=== PATIENT | female | born 2000 | race Caucasian/White ===

== ENCOUNTER 2019-11-11 21:28 | Emergency (ER) | payer OTHER ==
[~2019-11-11] VITALS: Ht 162.6 cm; Wt 68.2 kg
--- NOTE | 2019-11-11 22:03 | PHYS DOC ---
Past Medical History Past Medical History: Other Additional Past Medical Histor: SVT Past Surgical History: Other Additional Past Surgical Histo: CARDIAC ABLATION X2 Alcohol Use: None Drug Use: None Adult General Chief Complaint Chief Complaint: CHEST PAIN-CARDIAC NATURE HPI HPI Patient is a 19 year old male with remote history of SVT and cardiac ablation presents with right-sided parasternal chest pain starting 1 hour prior to ED arrival. Symptoms began while patient was sleeping. Pain is described as pressure-like and is rated [id number]. Pain reproduces with deep breathing and radiates to her back. It is not associated with fever, cough, sore throat, shortness of breath, palpitations, chills or sweats. No abdominal pain. Denies leg pain or swelling. No other acute symptoms or complaints. Patient has an IUD in place. Patient is a current smoker, denies drugs and alcohol. [] Review of Systems Review of Systems ROS as per HPI. All other ROS are negative All other systems were reviewed and found to be within normal limits, except as documented in this note. Current Medications Current Medications Current Medications Medications (Trade) Dose Ordered Sig/Zoe Start Time Stop Time Status Last Admin Dose Admin Ketorolac Tromethamine (Toradol 15mg Vial) 15 mg 1X ONCE 11/11/19 22:30 11/11/19 22:31 DC 11/11/19 22:44 15 MG Allergies Allergies Allergies Coded Allergies Type Severity Reaction Last Updated Verified Sulfa (Sulfonamide Antibiotics) Allergy Intermediate RASH 09/08/15 Yes Physical Exam Physical Exam Constitutional: Well developed, well nourished, no acute distress, non-toxic appearance. [] HENT: Normocephalic, atraumatic, bilateral external ears normal, oropharynx moist, no oral exudates, nose normal. [] Eyes: PERRLA, EOMI, conjunctiva normal, no discharge. [] Neck: Normal range of motion, no tenderness. [] Cardiovascular:Heart rate regular rhythm, no murmur [] Lungs & Thorax: Bilateral breath sounds clear to auscultation [] Abdomen: Bowel sounds normal, soft, no tenderness. [] Skin: Warm, dry, no erythema, no rash. [] Back: No tenderness, no CVA tenderness. [] Extremities: No tenderness, no cyanosis, negative Homans sign. [] Neurologic: Alert and oriented X 3, normal motor function, normal sensory function, no focal deficits noted. [] Psychologic: Affect normal, judgement normal, mood normal. [] Current Patient Data Vital Signs Vital Signs Date Time Temp Pulse Resp B/P (MAP) Pulse Ox O2 Delivery O2 Flow Rate FiO2 11/11/19 21:40 97.8 77 19 116/70 (85) 99 Room Air 97.8 Lab Values Laboratory Tests Test 11/11/19 21:38 11/11/19 22:20 White Blood Count 11.3 x10^3/uL (4.0-11.0) H Red Blood Count 4.78 x10^6/uL (3.50-5.40) Hemoglobin 14.7 g/dL (12.0-15.5) Hematocrit 42.5 % (36.0-47.0) Mean Corpuscular Volume 89 fL (79-100) Mean Corpuscular Hemoglobin 31 pg (25-35) Mean Corpuscular Hemoglobin Concent 35 g/dL (31-37) Red Cell Distribution Width 12.9 % (11.5-14.5) Platelet Count 240 x10^3/uL (140-400) Neutrophils (%) (Auto) 72 % (31-73) Lymphocytes (%) (Auto) 20 % (24-48) L Monocytes (%) (Auto) 6 % (0-9) Eosinophils (%) (Auto) 2 % (0-3) Basophils (%) (Auto) 0 % (0-3) Neutrophils # (Auto) 8.2 x10^3/uL (1.8-7.7) H Lymphocytes # (Auto) 2.3 x10^3/uL (1.0-4.8) Monocytes # (Auto) 0.7 x10^3/uL (0.0-1.1) Eosinophils # (Auto) 0.2 x10^3/uL (0.0-0.7) Basophils # (Auto) 0.0 x10^3/uL (0.0-0.2) D-Dimer (Charlee) < 0.27 ug/mlFEU Sodium Level 143 mmol/L (136-145) Potassium Level 4.1 mmol/L (3.5-5.1) Chloride Level 106 mmol/L (98-107) Carbon Dioxide Level 28 mmol/L (21-32) Anion Gap 9 (6-14) Blood Urea Nitrogen 12 mg/dL (7-20) Creatinine 0.9 mg/dL (0.6-1.0) Estimated GFR (Cockcroft-Gault) 79.8 BUN/Creatinine Ratio 13 (6-20) Glucose Level 93 mg/dL (70-99) Calcium Level 8.9 mg/dL (8.5-10.1) Total Bilirubin 0.4 mg/dL (0.2-1.0) Aspartate Amino Transferase (AST) 17 U/L (15-37) Alanine Aminotransferase (ALT) 22 U/L (14-59) Alkaline Phosphatase 121 U/L (46-116) H Total Protein 7.0 g/dL (6.4-8.2) Albumin 4.1 g/dL (3.4-5.0) Albumin/Globulin Ratio 1.4 (1.0-1.7) Lipase 94 U/L (73-393) POC Urine HCG, Qualitative Hcg negative (Negative) Laboratory Tests 11/11/19 21:38 Laboratory Tests 11/11/19 21:38 EKG EKG [EKG: Sinus rhythm, no acute ST-T wave changes.] Radiology/Procedures Radiology/Procedures Chest XR: NAD[] Course & Med Decision Making Course & Med Decision Making Pertinent Labs and Imaging studies reviewed. (See chart for details) [Pain resolved with Toradol. Lab, EKG imaging studies unremarkable. Suspect muscle skeletal pain with component of pleurisy. Recommend supportive care, watchful waiting and close PCP follow-up. Return precautions reviewed. Patient and parent verbalizes understanding and agreement discharge instructions prior to departure.] Dragon Disclaimer Dragon Disclaimer This electronic medical record was generated, in whole or in part, using a voice recognition dictation system. Departure Departure Impression: Primary Impression: Chest wall pain Additional Impression: Pleurisy Disposition: 01 HOME, SELF-CARE Condition: GOOD Referrals: CAROLINE BRANDON M.D. (PCP) Patient Instructions: Chest Pain (Nonspecific), [id number], Pleurisy, [id number] Additional Instructions: Please go home and rest. Take Tylenol or ibuprofen if chest pain returns. Follow-up with your PCP in 2-3 days for reevaluation. Return to the ED if new or worsening symptoms. Problem Qualifiers LISE SARABIA DO Nov 11, 2019 22:03
[2019-11-11 22:22] LABS: BASO % 0 % (0-3); EOS # 0.2 x10^3/uL (0.0-0.7); EOS % 2 % (0-3); HEMATOCRIT 42.5 % (36.0-47.0); HEMOGLOBIN 14.7 g/dL (12.0-15.5); LYMPH # 2.3 x10^3/uL (1.0-4.8); LYMPH % 20 % (24-48); MEAN CORPUSCULAR HEMOGLOBIN 31 pg (25-35); MEAN CORPUSCULAR HGB CONC 35 g/dL (31-37); MEAN CORPUSCULAR VOLUME 89 fL (79-100); MONO # 0.7 x10^3/uL (0.0-1.1); MONO % 6 % (0-9); NEUT # 8.2 x10^3/uL (1.8-7.7); NEUT % 72 % (31-73); PLATELET COUNT 240 x10^3/uL (140-400); RED BLOOD COUNT 4.78 x10^6/uL (3.50-5.40); RED CELL DISTRIBUTION WIDTH 12.9 % (11.5-14.5); WHITE BLOOD COUNT 11.3 x10^3/uL (4.0-11.0)
[2019-11-11 22:29] LABS: CALCIUM 8.9 mg/dL (8.5-10.1); CREATININE 0.9 mg/dL (0.6-1.0); GFR 79.8; POTASSIUM 4.1 mmol/L (3.5-5.1)
[2019-11-11] MEDS ORDERED: KETOROLAC 15 MG/ML VIAL. IVP ONE (22:30)
[2019-11-11 22:35] LABS: ALBUMIN 4.1 g/dL (3.4-5.0); ALBUMIN/GLOBULIN RATIO 1.4 (1.0-1.7); TOTAL BILIRUBIN 0.4 mg/dL (0.2-1.0)
--- NOTE | 2019-11-11 22:47 | RAD ---
Exam: Chest one view INDICATION: Chest pain TECHNIQUE: Frontal view of the chest Comparisons: None FINDINGS: The cardiomediastinal silhouette and pulmonary vessels are within normal limits. The lung and pleural spaces are clear. IMPRESSION: No acute cardiopulmonary process. Electronically signed by: Sade Corona MD (11/11/2019 10:44 PM) [id number]
[2019-11-11 23:37] VITALS: BP 96/52
== END 2019-11-12 00:05 | disposition home or self-care (01) ==
LOC: ER 21:28
DX: R09.1 Pleurisy (principal); R07.2 Precordial pain; F17.200 Nicotine dependence, unspecified, uncomplicated; Z88.2 Allergy status to sulfonamides
CPT/HCPCS: 36415; 71045; 80053; 81025; 83690; 85025; 85379; 96374; 99285; J1885

== ENCOUNTER 2020-05-13 23:55 | Emergency (ER) | payer OTHER ==
[~2020-05-13] VITALS: Ht 162.6 cm; Wt 59.1 kg
--- NOTE | 2020-05-14 01:02 | PHYS DOC ---
Past Medical History Past Medical History: Other Additional Past Medical Histor: SVT Past Surgical History: Other Additional Past Surgical Histo: CARDIAC ABLATION X2 Smoking Status: Current Every Day Smoker Alcohol Use: None Drug Use: None General Adult EDM: Chief Complaint: CHEST PAIN-CARDIAC NATURE HPI: HPI: Patient is a 19 year old female who presents with chest pain. The patient reports that she was diagnosed with pleurisy back in November 2019. Since then she has had intermittent pain in the anterior chest. Some days she will have it and some days she well. It may be gone for weeks and then will return spontaneously. She describes it as a sharp pain in trains. The pain will last for a few seconds or second then go away and then return. She denies any cough, fever, chills, shortness of breath, nausea or vomiting, weight loss, melena, hematochezia or abdominal pain. Review of Systems: Review of Systems: Constitutional: Denies fever or chills. [] Eyes: Denies change in visual acuity. [] HENT: Denies nasal congestion or sore throat. [] Respiratory: Denies cough or shortness of breath. [] Cardiovascular: See HPI. [] GI: Denies abdominal pain, nausea, vomiting, bloody stools or diarrhea. [] : Denies dysuria. [] Musculoskeletal: Denies back pain or joint pain. [] Integument: Denies rash. [] Neurologic: Denies headache, focal weakness or sensory changes. [] Endocrine: Denies polyuria or polydipsia. [] Lymphatic: Denies swollen glands. [] Psychiatric: Denies depression or anxiety. [] Heart Score: HEART Score for Chest Pain: HEART Score for Chest Pain Response (Comments) Value History Slighlty/Non-Suspicious 0 ECG Normal 0 Age < 45 0 Risk Factors No Risk Factors 0 Troponin < Normal Limit 0 Total 0 Risk Factors: Risk Factors: DM, Current or recent (<one month) smoker, HTN, HLP, family history of CAD, obesity. Risk Scores: Score 0 - 3: 2.5% MACE over next 6 weeks - Discharge Home Score 4 - 6: 20.3% MACE over next 6 weeks - Admit for Clinical Observation Score 7 - 10: 72.7% MACE over next 6 weeks - Early Invasive Strategies Allergies: Allergies: Allergies Coded Allergies Type Severity Reaction Last Updated Verified Sulfa (Sulfonamide Antibiotics) Allergy Intermediate RASH 09/08/15 Yes Physical Exam: PE: Constitutional: Well developed, well nourished, no acute distress, non-toxic appearance. [] HENT: Normocephalic, atraumatic, bilateral external ears normal, oropharynx moist, no oral exudates, nose normal. [] Eyes: PERRLA, EOMI, conjunctiva normal, no discharge. [] Neck: Normal range of motion, no tenderness, supple, no stridor. [] Cardiovascular:Heart rate regular rhythm, no murmur Chest wall: Tender to palpation in the inferior anterior costochondral margin reproducing her pain, no deformity [] Lungs & Thorax: Bilateral breath sounds clear to auscultation [] Abdomen: Bowel sounds normal, soft, no tenderness, no masses, no pulsatile masses. [] Skin: Warm, dry, no erythema, no rash. [] Back: No tenderness, no CVA tenderness. [] Extremities: No tenderness, no cyanosis, no clubbing, ROM intact, no edema. [] Neurologic: Alert and oriented X 3, normal motor function, normal sensory function, no focal deficits noted. [] Psychologic: Affect normal, judgement normal, mood normal. [] Current Patient Data: Vital Signs: Vital Signs Date Time Temp Pulse Resp B/P (MAP) Pulse Ox O2 Delivery O2 Flow Rate FiO2 05/14/20 00:01 98.6 78 16 120/79 (93) 99 Room Air 98.6 EKG: EKG: Heart rate is 74 bpm, normal sinus rhythm, incomplete right bundle branch block, normal intervals, normal axis, abnormal ECG [] Radiology/Procedures: Radiology/Procedures: [] Course & Med Decision Making: Course & Med Decision Making Pertinent Labs and Imaging studies reviewed. (See chart for details) 0235-the patient was seen and reevaluated. I reviewed all her laboratory and x- ray data with her. At this time she is suffering from chest wall pain secondary to costochondritis. I discussed with her treatment plan, reasons to return and need for follow-up. [] Winifred Disclaimer: Winifred Disclaimer: This electronic medical record was generated, in whole or in part, using a voice recognition dictation system. Departure Departure Impression: Primary Impression: Chest wall pain Additional Impression: Costal chondritis Disposition: HOME, SELF-CARE Condition: IMPROVED Referrals: NO PCP (PCP) Patient Instructions: Costochondritis Additional Instructions: Aleve 2 pills twice a day with food for the next 2 to 6 weeks, consider using ice in the evening after work for inflammation, no repetitive movements, light duty at work. Justicifation of Admission Dx: Justifications for Admission: Justification of Admission Dx: N/A ELLEN PATTERSON MD May 14, 2020 01:02
[2020-05-14 01:07] LABS: BASO % 0 % (0-3); EOS # 0.1 x10^3/uL (0.0-0.7); EOS % 1 % (0-3); HEMOGLOBIN 13.1 g/dL (12.0-15.5); LYMPH # 2.5 x10^3/uL (1.0-4.8); LYMPH % 49 % (24-48); MEAN CORPUSCULAR HEMOGLOBIN 31 pg (25-35); MEAN CORPUSCULAR HGB CONC 35 g/dL (31-37); MEAN CORPUSCULAR VOLUME 89 fL (79-100); MONO # 0.4 x10^3/uL (0.0-1.1); MONO % 8 % (0-9); NEUT # 2.1 x10^3/uL (1.8-7.7); NEUT % 42 % (31-73); PLATELET COUNT 196 x10^3/uL (140-400); RED BLOOD COUNT 4.27 x10^6/uL (3.50-5.40); RED CELL DISTRIBUTION WIDTH 12.9 % (11.5-14.5)
[2020-05-14] MEDS ORDERED: KETOROLAC 30 MG/ML VIAL. IVP ONE (01:15)
[2020-05-14 01:18] LABS: CALCIUM 8.4 mg/dL (8.5-10.1); CREATININE 0.8 mg/dL (0.6-1.0); GFR 91.4; POTASSIUM 3.8 mmol/L (3.5-5.1)
[2020-05-14 01:21] LABS: ALBUMIN 3.8 g/dL (3.4-5.0); ALBUMIN/GLOBULIN RATIO 1.2 (1.0-1.7); TOTAL BILIRUBIN 0.4 mg/dL (0.2-1.0)
--- NOTE | 2020-05-14 02:26 | RAD ---
INDICATION: Reason: CP / Spl. Instructions: / History: COMPARISON: November 11, 2019 FINDINGS: 2 view of chest obtained. Mild scoliotic curvature of the spine. No focal airspace consolidation or pulmonary edema. Cardiac silhouette is not enlarged. IMPRESSION: * No focal airspace consolidation or edema. Electronically signed by: Ortiz Parson MD (05/14/2020 2:23 AM) [id number]
[2020-05-14 02:45] VITALS: BP 94/65
--- NOTE | 2020-05-14 10:03 | EKG ---
[facility] [address] [place] [address] Test Date: 2020-05-14 Test Time: 00:06:57 Pat Name: LIZ GONZALEZ Department: Room: Gender: F Negative Cutter: : 2000 Requested By: ELLEN PATTERSON Order Number: [id number] Reading MD: Measurements Intervals [place] Rate: 74 P: 35 GA: 144 QRS: 79 QRSD: 92 T: 49 QT: 356 QTc: 396 Interpretive Statements SINUS RHYTHM INCOMPLETE RIGHT BUNDLE BRANCH BLOCK QRS(T) CONTOUR ABNORMALITY CONSIDER ANTEROSEPTAL MYOCARDIAL DAMAGE POSSIBLY ABNORMAL ECG RI6.01 No previous ECG available for comparison
== END 2020-05-14 02:55 | disposition home or self-care (01) ==
LOC: ER 23:55
DX: M94.0 Chondrocostal junction syndrome [Tietze] (principal); I45.10 Unspecified right bundle-branch block; F17.200 Nicotine dependence, unspecified, uncomplicated; Z88.2 Allergy status to sulfonamides
CPT/HCPCS: 36415; 71046; 80053; 84484; 85025; 93005; 96374; 99285; J1885